=== PATIENT | male | born 1955 | race Caucasian/White ===

== ENCOUNTER 2017-04-01 13:22 | Emergency (ER) | payer MEDICAID ==
[~2017-04-01] VITALS: Ht 185.4 cm; Wt 68.0 kg
[2017-04-01 13:34] VITALS: BP_SYST 154
--- NOTE | 2017-04-01 16:15 | NUR ---
Patient to ER hallway 2 to [facility] for evaluation. Side rails up. Report given to BREANA Leija
--- NOTE | 2017-04-01 16:20 | NUR ---
Jaqui Rincon [employer] at bedside examining patient
--- NOTE | 2017-04-01 16:20 | NUR ---
Pt brought by self, A&Ox4, pt c/o open areas and redness on R lower leg starting 2 weeks ago , skin pink and warm, cap refill <3 ,VS WNL, pt is afebrile.
--- NOTE | 2017-04-01 17:00 | NUR ---
Dr Harvey at bedside examining patient
--- NOTE | 2017-04-01 17:21 | NUR ---
Pt off the unit for ultrasound
[2017-04-01] MEDS ORDERED: DIPH-TET-PERTUS Vaccine 0.5 ML VIAL (ADACEL) I.M. ONE (17:45)
[2017-04-01] MEDS ORDERED: ceFAZolin SODIUM 1 GM VIAL IM ONE (17:45)
--- NOTE | 2017-04-01 18:46 | NUR ---
Patient given written and verbal discharge instructions and verbalizes understanding. ER MD discussed with patient the results and treatment provided. Patient in stable condition. ID arm band removed. IV catheter removed intact and dressing applied, no active bleeding. Rx Augmentin of given. Patient educated on pain management and to follow up with PMD. Pain Scale 0/10. Opportunity for questions provided and answered.
[2017-04-01 18:52] VITALS: BP_SYST 142
== END 2017-04-01 18:52 | disposition home or self-care (01) ==
LOC: SED 13:22
DX: L03.115 Cellulitis of right lower limb (principal)
CPT/HCPCS: 73590; 90471; 90715; 93971; 96372; 99284; J0690